=== PATIENT | female | born 2000 | race Caucasian/White ===

== ENCOUNTER → 2018-07-01 10:57 | Outpatient (CLI) | payer SELFPAY ==
--- NOTE | 2018-07-01 11:05 | US_ITS ---
HISTORY: LLQ PAIN EXAMINATION: US Transvaginal Non-OB TECHNIQUE: Transabdominal pelvic ultrasound was performed. COMPARISON: None FINDINGS: UTERUS: anteverted The uterus measures 7.6 x 4.7 x 2.1 cm. There is no uterine mass. The endometrial stripe measures 7 mm in AP diameter which is within normal limits. RIGHT OVARY: 3.6 x 2.9 x 1.4 cm. It contains a physiologic 2.2 cm diameter cyst. Non-enlarged, normal echogenicity. There is normal arterial inflow and venous outflow present in the right ovary. LEFT OVARY: 3.4 x 3.2 x 1.6 cm. Non-enlarged, normal echogenicity. There is normal arterial inflow and venous outflow present in the left ovary. FREE FLUID: None. Urinary bladder distended with no stones or filling defects. Urinary bladder volume 707 cc. US/Pelvic (Non ) IMPRESSION: Pelvic ultrasound within normal limits. Physiologic 2.2 cm right ovarian cyst. at 2026 Reported and signed by: Tomy Bailey MD Electronically Signed: Tomy Bailey, at 20:25 EDT Tel , Service support ,
== END ==
PROVIDERS: Family Provider Family Medicine; PCP Family Medicine; Referring Provider Family Medicine; Visit Provider Family Medicine
DX: R10.2 Pelvic and perineal pain (principal)
CPT/HCPCS: 76856

== ENCOUNTER 2020-05-25 07:02 | Day surgery (SDC) | payer SELFPAY ==
[2020-05-25] VITALS (10 sets, daily range): BP systolic 100–127; BP diastolic 58–92; PULSE 68–85; RESP 16; TEMP 37.1–37.4; O2SAT 99–100; BMI 20.9
[2020-05-25] MEDS: Lactated Ringers 1,000 ML 100 ML IV (07:47)
[2020-05-25 07:52] LABS: Internal QC Validated? YES +Cl - CLEAR BKGD; Pregnancy, Urine Negative Negative
--- NOTE | 2020-05-25 08:39 | OP.PCM_ITS ---
Problem List (1) Chronic tonsillitis Status: Chronic Report of Operation Date of Procedure: 05/25/20 Pre-Operative Diagnosis: Chronic tonsillitis Post-Operative Diagnosis: Same Surgery/Procedure Performed:: Tonsillectomy Description of Surgical Findings:: Re is a 20-year-old female with complaints of recurrent frequent sore throat from tonsillitis. This is required multiple courses of antibiotic for relief and given this the above procedures offered hopes of improvement of this complaint she was eager to proceed. The risks, alternatives, potential complications, and benefits were discussed at length and any questions answered to the patient and/or caregiver's satisfaction. Witnessed informed consent was obtained in the office, and the patient and/or caregiver was agreeable to proceed. Procedure went as follows: The patient was identified in the preoperative holding, brought to the operating room, was placed under general anesthesia and intubated. When appropriate anesthesia was obtained, the head of bed was rotated and the patient prepped and draped in usual sterile fashion. A Titi Jairo mouthgag was then placed and the patient suspended from the Zepeda stand. T he oral cavity was examined and noted to have 2+ cryptic tonsillar hypertrophy. Beginning on the right side, the right tonsil was then grasped with a curved tenaculum and dissected from the underlying capsule with monopolar cautery. This was then sent as specimen. Similar procedure was then completed on the contralateral side. The oral and nasal cavities were then irrigated with saline solution. An NG tube was then placed to decompress the stomach. The patient was then returned to anesthesia, revived and extubated having tolerated the procedure well. Type of Anesthesia:: General Anesthesiologist: Jose Zamarripa Specimen's removed: bilateral tonsils Drains: none Estimated Blood Loss (mL): 0 mL Fluids Replaced: 600 mL Grafts/Implants Used: none - Complications none - Admit VTE Documentation VTE Present on Admission: No VTE Mechan Device Prophylaxis: SCD's VTE Pharm Prophylaxis ordered?: No
--- NOTE | 2020-05-25 08:43 | DCINST_ITS ---
Discharge Diet: No Restrictions Discharge Activity: Return to Normal Activity Call your doctor if your incision/area has: Sudden Increased Bleeding Call your doctor if you observe: Fever of 101 or Higher, Uncontrolled pain Allergies/Adverse Reactions: Allergies Sulfa (Sulfonamide Antibiotics) Allergy (Verified 05/25/20 07:15) Rash Medications to take at Discharge NK 05/18/20 Primary Care Physician: Amy Meadows DO [Primary Care Provider] - Test Results: Test results from this visit will be discussed in further detail at your follow- up appointment, if applicable. Please Follow Up With: Ihsan Donaldson MD When: 2 weeks
[2020-05-25] MEDS: Acetaminophen 160 MG/5 ML UDC 500 MG PO (10:16)
--- NOTE | 2020-05-25 12:34 | SUR.PHASEII ---
VSS. ASKING FOR MOTRIN. NEEDS ENCOURAGEMENT TO DRINK FLUIDS. HAS TAKEN VERY LITTLE PO FLUIDS AT THIS POINT, POST-OP HOUR 3.5. EDUCATION AND ENCOURAGEMENT GIVEN TO PATIENT & FATHER.
[2020-05-25] MEDS: Ibuprofen 100 MG/5 ML UDC 500 MG PO (12:55)
== END 2020-05-25 13:23 | disposition home or self-care (01) ==
LOC: SDC 07:05 → AC 07:07
PROVIDERS: Anesthesiology; PCP Family Medicine; Referring Provider Otolaryngology; Visit Provider Otolaryngology
PROC: (CPT 42826; principal; 2020-05-25 08:15)
DX: J35.01 Chronic tonsillitis (principal); Z20.822 Contact with and (suspected) exposure to COVID-19
CPT/HCPCS: 42826; 81025; 87426; C9803; J7120; J2310; J2405

== ENCOUNTER 2020-06-05 06:45 | Day surgery (SDC) | payer SELFPAY ==
[2020-05-25 07:43] VITALS: BMI 20.9
[2020-06-05] VITALS (10 sets, daily range): BP systolic 104–131; BP diastolic 63–73; PULSE 66–97; RESP 16; TEMP 36.8–37.2; O2SAT 99–100; BMI 20.5
--- NOTE | 2020-06-05 07:11 | ED.VISSUMM ---
- ER Visit Summary Date of Service: 06/05/20 Chief Complaint: Postoperative bleeding History of Present Illness: The patient is a 20 F who presents with postoperative bleeding from her tonsils. Patient had a recent tonsillectomy and noted some bleeding from her tonsils last night. Patient states she had 2 episodes of vomiting blood. Patient states that her bleeding seemed to improve after she vomited. Patient admits to some pain in her throat. Patient admits to subjective chills but denies any fevers. Patient denies any abdominal pain. Patient denies any chest pain or shortness of breath. Physical Examination: Vital signs are stable. Patient is afebrile. Patient is in no acute distress. Oral mucosa is pink and moist. There is some dark blood noted in the tonsils bilaterally, slightly worse on the left. Neck is supple. Trachea is midline. There is no JVD. Heart was regular rate and rhythm. Lungs are clear and equal bilaterally. Cranial nerves II through XII are intact. There are no focal motor or sensory deficits. Emergency Department Course and Treatment: Dr. Donaldson was in to evaluate the patient. He will take the patient to the operating room for cauterization. Patient and family understood and were agreeable with the plan. All questions were answered. Disposition: Admit to operating room Impression: 1. Postoperative bleeding This note was generated with Snoobe dictation software. It may contain incorrect words, spelling, and punctuation that were not noted in review of the chart prior to signing ED Disposition - Plan for ED Patient: Disposition: Acute Care Hospital [facility] Diagnosis: Post-tonsillectomy hemorrhage Referrals: Amy Meadows DO [Primary Care Provider] -
--- NOTE | 2020-06-05 08:30 | PCM.OPRPT ---
Problem List (1) Post-tonsillectomy hemorrhage Status: Acute Report of Operation Date of Procedure: 06/05/20 Pre-Operative Diagnosis: Post-tonsillectomy bleeding Post-Operative Diagnosis: Same Surgery/Procedure Performed:: Control of post-tonsillectomy bleeding Description of Surgical Findings:: Re is a 20-year-old female who presents status post tonsillectomy with expectoration of large blood clots overnight that has continued into the morning. Examination showed a large organized clot in the left inferior tonsillar fossa and she was intolerant of attempts at removal or cauterization at the bedside due to strong gag and return to the OR for control was advised given her ongoing bleeding and vomiting of clots. The risks, alternatives, potential complications, and benefits were discussed at length and any questions answered to the patient and/or caregiver's satisfaction. Witnessed informed consent was obtained in the office, and the patient and/or caregiver was agreeable to proceed. Procedure went as follows: The patient was identified in the preoperative holding, brought to the operating room, was placed under general anesthesia rapid sequence technique and intubated. When appropriate anesthesia was obtained, the head of bed was rotated and the patient prepped and draped in usual sterile fashion. A Titi Jairo mouthgag was then placed and the patient suspended from the Zepeda stand. The oral cavity was examined and noted to have organized clot arising from the left inferior tonsillar pole. This was then removed and an isolated bleeding vessel identified and controlled with suction electrocautery. The tonsillar fossa were then cleansed with saline bilaterally and no other sites of bleeding were identified. An NG tube was then placed to decompress the stomach. It was then irrigated with saline until the material returned was clear which initially had been quite bloody. The patient was then returned to anesthesia, revived and extubated having tolerated the procedure well. Type of Anesthesia:: General Anesthesiologist: Ihsan Cochran Special Medications: none Specimen's removed: none Drains: none Estimated Blood Loss (mL): 0 mL Fluids Replaced: 700 mL Grafts/Implants Used: none - Complications none - Admit VTE Documentation VTE Present on Admission: No VTE Mechan Device Prophylaxis: None VTE Pharm Prophylaxis ordered?: No Reason prophylaxis not ordered:: Procedure Not Indicated
--- NOTE | 2020-06-05 08:35 | PCM.DC ---
- Discharge Diagnoses Current Active Problems: Current Active and Chronic Problems Post-tonsillectomy hemorrhage (Acute) You will use the following diet at home:: No restrictions, Regular Discharge Activity: Return to Normal Activity Call your doctor if your incision/area has: Sudden Increased Bleeding Call your doctor if you observe: Fever of 101 or Higher, Uncontrolled pain Allergies/Adverse Reactions: Allergies Sulfa (Sulfonamide Antibiotics) Allergy (Verified 06/05/20 06:46) Rash Medications to take at Discharge Acetaminophen Liquid [Tylenol Liquid] 500 mg PO Q4H PRN PRN [facility] [place] 05/25/20 Ibuprofen Liquid [Motrin Liquid] 500 mg PO Q6H PRN PRN [facility] [place] 05/25/20 Primary Care Physician: Amy Meadows DO [Primary Care Provider] - Test Results: Test results from this visit will be discussed in further detail at your follow-up appointment, if applicable. Please Follow Up With: Ihsan Donaldson MD When: as scheduled
[2020-06-05] MEDS: Lactated Ringers 1,000 ML 100 ML IV (08:51)
[2020-06-05] MEDS: Acetaminophen 160 MG/5 ML UDC 500 MG PO (09:38)
[2020-06-05] MEDS: Ibuprofen 100 MG/5 ML UDC 500 MG PO (10:24)
== END 2020-06-05 10:47 | disposition home or self-care (01) ==
LOC: ED 07:41 → SDC 08:01 → ACINP 08:01 → AC 08:03
PROVIDERS: Emergency Provider Emergency Medicine; PCP Family Medicine; Visit Provider Otolaryngology
PROC: (CPT 42962; principal; 2020-06-05 07:15)
DX: J95.830 Postprocedural hemorrhage of a respiratory system organ or structure following a respiratory system procedure (principal); Y83.8 Other surgical procedures as the cause of abnormal reaction of the patient, or of later complication, without mention of misadventure at the time of the procedure; Y92.9 Unspecified place or not applicable
CPT/HCPCS: 00170; 42962; 99283; J7120; A4216; J2405

== ENCOUNTER → 2020-08-22 | Outpatient (CLI) | payer SELFPAY ==
[2020-06-05 06:46] VITALS: BMI 20.5
--- NOTE | 2020-08-21 17:00 | LES_PTH ---
PATIENT: JEOVANNY CAST LOC: [facility] U#:[id number] AGE/SX: 20/ ROOM: RE08/22/[address]: Dr. Harriet Solis MD : 2000 BED: DIS: 08/22/2020 SPEC #: [id number] RECD: 08/21/20 17:52 STATUS: PERRY RETk #: [id number] DIEGO: 08/21/20 17:[address]: Harriet Solis DEPT: SURGICAL PATHOLOGY RECD BY: Olga Bone ENTERED: 08/22/20 08:46 SP TYPE: Lesion OTHR DR: Dr. Amy Meadows DO Tissues: Skin of arm Procedures: Special Stain Group I Surgery Specimen Level IV GMS Stain (control) HEADER OPERATION: Punch biopsy PRE-OP DIAGNOSIS: Persistent skin lesion, some response to steroid TISSUE SUBMITTED: Punch biopsy right upper arm MICROSCOPIC DIAGNOSIS Right upper arm skin lesion, punch biopsy: Mild superficial dermal and perivascular chronic inflammation. Focal hyperkeratosis and parakeratosis. Focal minimal acute inflammation in superficial keratin layers. Special stain for fungi is positive for fungal organisms (hyphae) in superficial keratin layers; matched control is appropriate. Negative for malignancy. See comment. CORONA:jose m 08/23/2020 COMMENT Clinical correlation and appropriate follow up are necessary. Case has been reviewed in consultation with Dr. Sam who concurs with the above diagnosis. IDC:AM MICROSCOPIC DESCRIPTION Slides are reviewed. GROSS DESCRIPTION Received is one container labeled with the patient's name and not further designated. The specimen consists of a punch biopsy of bae-white skin measuring 0.3 cm in diameter and 0.3 cm in length. The entire specimen is submitted in one cassette. / CORONA:jose m 08/22/20 TC:3 CPT: 99211, 99354
== END | disposition home or self-care (01) ==
PROVIDERS: PCP Family Medicine; Referring Provider Family Medicine; Visit Provider Family Medicine
DX: L98.9 Disorder of the skin and subcutaneous tissue, unspecified (principal)
CPT/HCPCS: 88305; 88312

== ENCOUNTER → 2021-07-15 | Outpatient (CLI) | payer SELFPAY ==
--- NOTE | 2021-07-15 08:05 | MRI_ITS ---
STUDY: MRI TEMPOROMANDIBULAR JOINTS REASON FOR EXAM: Female, 21 years old. TMJ disorder, pain, headaches, right side pain worse than left TECHNIQUE: Standardized fat and water weighted pulse sequences were obtained in all 3 orthogonal planes. COMPARISON: None. FINDINGS: Left TMJ: In the closed-mouth position, the left mandibular condyle is normally positioned in the mandibular fossa. Normal left mandibular condyle. Normal meniscus. Normal relationship of the meniscus to the mandibular condyle. There is no demonstrated joint effusion. In the open mouth position, there is normal forward translation of the mandibular condyle which comes to rest under the articular eminence. The meniscus maintains its normal relationship with the mandibular condyle and articular eminence. Right TMJ: In the closed-mouth position, the right mandibular condyle is normally positioned in the mandibular fossa. Juliet right mandibular condyle. Normal meniscus. Normal relationship of the meniscus to the mandibular condyle. There is no demonstrated joint effusion. In the open mouth position, there is normal forward translation of the mandibular condyle which comes to rest under the articular eminence. The meniscus maintains its normal relationship with the mandibular condyle and articular eminence. MRI/TMJ/Bilat IMPRESSION: Normal bilateral temporomandibular joints. Electronically Signed: Bacilio Monet MD at 10:19 EDT ,
== END | disposition home or self-care (01) ==
PROVIDERS: PCP Family Medicine; Visit Provider Dentist Oral and Maxillofacial Surgery
DX: M26.609 Unspecified temporomandibular joint disorder, unspecified side (principal); R51.9 Headache, unspecified; M26.623 Arthralgia of bilateral temporomandibular joint
CPT/HCPCS: 70336

== ENCOUNTER 2024-02-01 23:03 | Emergency (ER) | payer OTHER, SELFPAY ==
[2024-02-01 23:04] VITALS: BP 117/77; PULSE 98; RESP 16; TEMP 36.6; O2SAT 100; BMI 21.4
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
[2024-02-01] MEDS: Lidocaine 1% /Epi 1:100 (20ml) 20 ML Vial INFILT (23:37)
--- NOTE | 2024-02-01 23:50 | RAD_ITS ---
EXAM: XR CHEST, 2 VIEWS CLINICAL INDICATION: Cough TECHNIQUE: Frontal and lateral views of the chest. COMPARISON: No relevant prior studies available. FINDINGS: LUNGS AND PLEURAL SPACES: Unremarkable. No consolidation or edema. No pneumothorax. No effusion. HEART: Unremarkable. Cardiac silhouette not enlarged. MEDIASTINUM: Central airways and mediastinal contour are unremarkable. BONES/JOINTS: Unremarkable. No acute fracture. SOFT TISSUES: Unremarkable. RAD/Chest PA and Lateral IMPRESSION: No radiographic evidence of acute cardiopulmonary disease. Electronically Signed: Anne Gross MD at 0:46 EST ,
== END 2024-02-02 01:05 | disposition home or self-care (01) ==
PROVIDERS: Emergency Provider Emergency Medicine; PCP Physician Assistant; Visit Provider Emergency Medicine
DX: S01.81XA Laceration without foreign body of other part of head, initial encounter (principal); W33.02XA Accidental discharge of hunting rifle, initial encounter; Y93.89 Activity, other specified
CPT/HCPCS: 12011; 71046; 99284